=== PATIENT | female | born 1970 | race Caucasian/White ===

== ENCOUNTER → 2020-10-10 08:29 | Outpatient (CLI) | payer OTHER, SELFPAY ==
[2020-10-10 21:01] LABS: Cholesterol 209 mg/dL (140-199); HDL Cholesterol 60 mg/dL (40-60); LDL Cholesterol Calculated 124 mg/dL (<100); Triglycerides 126 mg/dL (35-150)
== END ==
PROVIDERS: PCP Physician Assistant; Visit Provider Physician Assistant
DX: E03.9 Hypothyroidism, unspecified (principal); Z13.220 Encounter for screening for lipoid disorders
CPT/HCPCS: 80061; 84443

== ENCOUNTER → 2021-06-19 08:24 | Outpatient (CLI) | payer OTHER, SELFPAY ==
[2021-06-19 20:08] LABS: Alanine Aminotransferase 16 IU/L (<35); Albumin 4.5 g/dL (3.5-5.0); Albumin Globulin Ratio 1.6 (1.0-2.8); Alkaline Phosphatase 92 U/L (38-126); Aspartate Aminotransferase 26 IU/L (14-36); BUN Creatinine Ratio 15.4 (6-22); Bilirubin Total 1.7 mg/dL (0.2-1.3); Blood Urea Nitrogen 12 mg/dL (7-17); Calcium 10.2 mg/dL (8.4-10.2); Carbon Dioxide 28 mmol/L (22-32); Chloride 104 mmol/L (98-107); Cholesterol 217 mg/dL (140-199); Estimated Glomerular Filt Rate > 60.0 mL/min (>60); Globulin 2.8 g/dL (1.7-4.1); Glucose 97 mg/dL (70-100); HDL Cholesterol 69 mg/dL (40-60); HEMOLYSIS 16 (0-50); LDL Cholesterol Calculated 128 mg/dL (<100); Potassium 4.5 mmol/L (3.4-5.1); Sodium 137 mmol/L (137-145); Total Protein 7.3 g/dL (6.3-8.2); Triglycerides 100 mg/dL (35-150)
[2021-06-19 20:23] LABS: Free T3, Triiodothyronine Free 3.47 pg/mL (2.77-5.27)
[2021-06-19 20:39] LABS: TSH w/ Reflex to FT4 0.52 uIU/mL (0.47-4.68)
== END ==
PROVIDERS: PCP Physician Assistant; Visit Provider Physician Assistant
DX: Z13.220 Encounter for screening for lipoid disorders (principal); E03.9 Hypothyroidism, unspecified
CPT/HCPCS: 80053; 80061; 84443; 84481

== ENCOUNTER → 2022-07-28 11:01 | Outpatient (CLI) | payer OTHER, SELFPAY ==
[2022-07-28 19:23] LABS: Hematocrit 40.9 % (36-46); Hemoglobin 13.9 g/dL (12.0-16.0); Mean Corpuscular HGB Conc 33.9 % (30-36); Mean Corpuscular Hemoglobin 31.9 PG (26-34); Mean Corpuscular Volume 94.1 fL (80-100); Platelet Count 212 X10^3/uL (150-400); Red Blood Cell Count 4.35 X10^6/uL (4.0-5.2); Red Cell Distribution Width 13.4 % (11.6-14.8); White Blood Cell Count 6.5 X10^3/uL (4.5-11.0)
[2022-07-28 19:31] LABS: Alanine Aminotransferase 21 IU/L (<35); Albumin 4.5 g/dL (3.5-5.0); Albumin Globulin Ratio 1.6 (1.0-2.8); Alkaline Phosphatase 98 U/L (38-126); Aspartate Aminotransferase 28 IU/L (14-36); BUN Creatinine Ratio 12.3 (6-22); Bilirubin Total 1.4 mg/dL (0.2-1.3); Blood Urea Nitrogen 10 mg/dL (7-17); Carbon Dioxide 30 mmol/L (22-32); Chloride 101 mmol/L (98-107); Cholesterol 190 mg/dL (140-199); Estimated Glomerular Filt Rate > 60 mL/min (>60); Globulin 2.9 g/dL (1.7-4.1); Glucose 97 mg/dL (70-100); HDL Cholesterol 55 mg/dL (40-60); HEMOLYSIS < 15 (0-50); LDL Cholesterol Calculated 104 mg/dL (<100); Potassium 4.2 mmol/L (3.4-5.1); Sodium 140 mmol/L (137-145); Total Protein 7.4 g/dL (6.3-8.2); Triglycerides 156 mg/dL (35-150)
[2022-07-28 19:45] LABS: Neutrophils Absolute Manual 4030 /uL (3000-5900); Platelet Estimate Adequate on smear; RBC Morphology Normal Morphology; Total Cells Counted 100
[2022-07-28 19:47] LABS: Free T3, Triiodothyronine Free 3.76 pg/mL (2.77-5.27)
[2022-07-28 20:01] LABS: TSH w/ Reflex to FT4 0.03 uIU/mL (0.47-4.68)
[2022-07-28 23:10] LABS: Free T4, Direct Thyroxine 1.69 ng/dL (0.78-2.19)
== END ==
PROVIDERS: PCP Physician Assistant; Visit Provider Physician Assistant
DX: E03.9 Hypothyroidism, unspecified (principal); E78.00 Pure hypercholesterolemia, unspecified; Z79.899 Other long term (current) drug therapy
CPT/HCPCS: 80053; 80061; 84439; 84443; 84481; 85025

== ENCOUNTER → 2022-08-20 12:17 | Outpatient (CLI) | payer OTHER, SELFPAY ==
[2022-08-20 19:41] LABS: Bilirubin Total 0.7 mg/dL (0.2-1.3); Lipase 114 U/L (23-300)
[2022-08-20 20:08] LABS: TSH w/ Reflex to FT4 0.21 uIU/mL (0.47-4.68)
[2022-08-20 21:22] LABS: Free T4, Direct Thyroxine 1.22 ng/dL (0.78-2.19)
== END ==
PROVIDERS: PCP Physician Assistant; Visit Provider Physician Assistant
DX: R17 Unspecified jaundice (principal); E03.9 Hypothyroidism, unspecified; E78.5 Hyperlipidemia, unspecified
CPT/HCPCS: 82247; 82248; 83690; 84439; 84443; 84481

== ENCOUNTER → 2023-05-07 13:30 | Outpatient (CLI) | payer OTHER, SELFPAY ==
[2023-05-07 20:34] LABS: TSH w/ Reflex to FT4 0.45 uIU/mL (0.47-4.68)
[2023-05-07 20:59] LABS: Free T4, Direct Thyroxine 1.48 ng/dL (0.78-2.19)
== END ==
PROVIDERS: PCP Physician Assistant; Visit Provider Physician Assistant
DX: E03.9 Hypothyroidism, unspecified (principal)
CPT/HCPCS: 84439; 84443

== ENCOUNTER → 2023-07-30 13:03 | Outpatient (CLI) | payer OTHER, SELFPAY ==
[2023-07-30 22:11] LABS: Thyroid Stimulating Hormone 1.18 uIU/mL (0.47-4.68)
== END ==
PROVIDERS: PCP Family Medicine; Visit Provider Family Medicine
DX: E03.9 Hypothyroidism, unspecified (principal)
CPT/HCPCS: 84443

== ENCOUNTER 2023-12-19 08:53 | Emergency (ER) | payer OTHER, SELFPAY ==
[2023-12-19] VITALS (8 sets, daily range): BP systolic 119–160; BP diastolic 70–87; PULSE 62–91; RESP 18; TEMP 37.1; O2SAT 94–99; BMI 38.6
--- NOTE | 2023-12-19 09:05 | ED.SKABFB ---
HPI - Skin/Abscess/Foreign Bdy General Chief complaint: Allergic Reaction Stated complaint: Allergic reaction Time Seen by Provider: 12/19/23 08:54 History of Present Illness HPI narrative: 53-year-old female presents for swelling, redness, itching of her face for the last 4 days. Last night patient began to have crusting and oozing from her cheeks. Took 2 Benadryl tablets at 4:00 a.m. prior to arrival. Patient states symptoms started shortly after starting topical ketoconazole and triamcinolone cream for a separate dermatological issue in her genital region. Patient has not used either these creams on her face. The itching and oozing is localized only to her face. Patient denies shortness of breath, nausea, vomiting, other complaints at this time. Related Data Previous Rx's Medication Instructions Recorded levothyroxine 125 mcg capsule 125 mcg PO DAILY #90 caps 05/28/23 estradiol 0.0375 mg/24 hr weekly 1 patch transdermal .TWICE WEEKLY 06/02/23 transdermal patch PATCH #8 ea progesterone micronized 100 mg 100 mg PO BEDTIME #90 caps 06/02/23 capsule levothyroxine 125 mcg tablet 125 mcg PO DAILY #90 tabs 11/30/23 cephalexin 250 mg capsule 250 mg PO QID #28 caps 12/19/23 mupirocin 2 % topical ointment 1 applic topical TID #22 grams 12/19/23 prednisone 20 mg tablet 20 mg PO BID #6 tabs 12/19/23 Allergies Allergy/AdvReac Type Severity Reaction Status Date / Time No Known Drug Allergies Allergy Verified 05/28/23 16:30 Patient History Medical History Low libido Menopausal symptoms Diverticulosis large intestine w/o perforation or abscess w/bleeding Social History Smoking Status: Never smoker Smoking Status: Never smoker Exam Initial Vital Signs Initial Vital Signs: Vital Signs Blood Pressure 160/87 H 12/19/23 08:57 Const: Awake, alert, no acute distress, nontoxic appearing HEENT: Atraumatic, moist mucous membranes, no tongue swelling Cardiac: regular rate, regular rhythm RESP: unlabored, clear bilaterally, no wheezing Skin: Erythema of cheeks extending just past jaw bilaterally, honey crusting over cheeks Neuro: AO x3, CN II-XII grossly intact, moves all extremities Course Orders Ordered: ED Orders 12/19/23 09:05 CBC Auto Diff [Complete Blood Count AUTO DIFF] Stat CMP [Comprehensive Metabolic Panel] Stat Discontinued Medications Diphenhydramine HCl (Diphenhydramine 50 Mg/Ml Vial) 50 mg IV NOW ONE Stop: 12/19/23 09:01 Last Admin: 12/19/23 09:13 Dose: 50 mg Documented By: RB Ketorolac Tromethamine (Ketorolac 30 Mg/Ml Vial) 15 mg IV NOW ONE Stop: 12/19/23 09:01 Last Admin: 12/19/23 09:13 Dose: 15 mg Documented By: RB Methylprednisolone (Methylprednisolone 125 Mg/2 Ml Vial) 125 mg IV NOW ONE Stop: 12/19/23 09:01 Last Admin: 12/19/23 09:13 Dose: 125 mg Documented By: RB Vital Signs Vital signs: Vital Signs - 8 hr 12/19/23 08:57 12/19/23 08:58 12/19/23 08:58 Temperature 98.7 F Pulse Rate 81 91 H Respiratory Rate 18 Blood Pressure 160/87 H 134/79 Pulse Oximetry 98 97 Oxygen Delivery Method Room Air 12/19/23 09:00 12/19/23 09:00 12/19/23 09:15 Temperature Pulse Rate 83 77 Respiratory Rate Blood Pressure 134/79 Pulse Oximetry 99 99 Oxygen Delivery Method 12/19/23 09:15 12/19/23 10:15 12/19/23 10:16 Temperature Pulse Rate 77 62 Respiratory Rate Blood Pressure 129/72 Pulse Oximetry 94 96 Oxygen Delivery Method 12/19/23 10:16 12/19/23 10:30 12/19/23 10:30 Temperature Pulse Rate 71 Respiratory Rate Blood Pressure 121/70 119/73 Pulse Oximetry 95 Oxygen Delivery Method 12/19/23 10:45 12/19/23 10:45 Temperature Pulse Rate 71 Respiratory Rate Blood Pressure 125/77 Pulse Oximetry 95 Oxygen Delivery Method MDM - Skin/Abscess/Foreign Bdy Lab Data 12/19/23 09:05 12/19/23 09:05 Labs: Lab Results 12/19/23 Range/Units 09:05 WBC 8.3 (4.5-11.0) X10^3/uL RBC 4.30 (4.0-5.2) X10^6/uL Hgb 14.1 (12.0-16.0) g/dL Hct 41.6 (36-46) % MCV 96.8 (80-100) fL MCH 32.8 (26-34) PG MCHC 33.9 (30-36) % RDW 13.5 (11.6-14.8) % Plt Count 214 (150-400) X10^3/uL Neut % (Auto) 62.9 (50-75) % Lymph % (Auto) 24.5 L (25-40) % [place] % (Auto) 6.7 (3-14) % Eos % (Auto) 5.3 H (2-4) % Baso % (Auto) 0.6 (0-2) % Neut # (Auto) 5200 (5629-0186) /uL Lymph # (Auto) 2000 (4226-7161) /uL [place] # (Auto) 600 (0-900) /uL Eos # (Auto) 400 (0-450) /uL Baso # (Auto) 100 (0-100) /uL Sodium 139 (137-145) mmol/L Potassium 4.4 (3.4-5.1) mmol/L Chloride 106 (98-107) mmol/L Carbon Dioxide 30 (22-32) mmol/L BUN 13 (7-17) mg/dL Creatinine 0.93 (0.52-1.04) mg/dL Estimated GFR > 60 (>60) mL/min BUN/Creatinine Ratio 14.0 (6-22) Glucose 118 H (70-100) mg/dL Calcium 9.6 (8.4-10.2) mg/dL Total Bilirubin 1.2 (0.2-1.3) mg/dL AST 24 (14-36) IU/L ALT 16 (<35) IU/L Alkaline Phosphatase 94 (38-126) U/L Total Protein 7.6 (6.3-8.2) g/dL Albumin 4.4 (3.5-5.0) g/dL Globulin 3.2 (1.7-4.1) g/dL Albumin/Globulin Ratio 1.4 (1.0-2.8) MDM Narrative Medical decision making narrative: Skin redness and swelling of both cheeks. There is what appears to be honey crusting of the cheeks as well. No other systemic rash or symptoms to suggest allergic reaction. This seems more likely to be a bacterial infection such as impetigo. No airway involvement or compromise. Laboratory work is unremarkable. Patient states that the stinging sensation in her face seems to have gone down somewhat. I still feel as though patient's symptoms are more likely to be skin/soft tissue related I will also plan on discharging with a short course of steroids if there is an allergic component involved. Patient counseled to finish all medications as prescribed and to follow up with her intelligence engineer. Skin care and handwashing guidelines instructed at bedside Discharge Plan Departure Patient Disposition: Home Clinical Impression: Impetigo Instructions: DI for Impetigo Activity Restrictions/Additional Instructions: The rash and swelling on your face is suspicious for impetigo. To be on the safe side I will also treat this as a possible allergic reaction with steroids. Apply the antibiotic ointment to your face 3 times daily for the next 5-7 days. Finish all antibiotics as prescribed even if you are feeling improved. Follow up with your intelligence engineer. Any time you touch her face make sure to wash her hands thoroughly with soap and water Prescriptions: New mupirocin 2 % ointment 1 applic topical TID Qty: 22 0RF cephalexin 250 mg capsule 250 mg PO QID Qty: 28 0RF prednisone 20 mg tablet 20 mg PO BID Qty: 6 0RF No Action estradiol 0.0375 mg/24 hr patch weekly 1 patch transdermal .TWICE WEEKLY PATCH Qty: 8 12RF Rx Instructions: PLACE 1 PATCH ON THE SKIN 2 TIMES A WEEK. progesterone micronized 100 mg capsule 100 mg PO BEDTIME Qty: 90 3RF levothyroxine 125 mcg tablet 125 mcg PO DAILY Qty: 90 2RF levothyroxine 125 mcg capsule 125 mcg PO DAILY Qty: 90 1RF Referrals: Kamala Abebe MD [Primary Care Provider] - Stand Alone Forms: Patient Portal/API
[2023-12-19] MEDS: diphenhydrAMINE 50 MG/ML VIAL IV (09:13)
[2023-12-19] MEDS: KETOROLAC 30 MG/ML VIAL 15 MG IV (09:13)
[2023-12-19] MEDS: methylPREDNISolone 125 MG/2 ML VIAL IV (09:13)
[2023-12-19 10:04] LABS: Add Manual Diff / Slide Review NO; Basophils Absolute Auto 100 /uL (0-100); Basophils Percent Auto 0.6 % (0-2); Eosinophils Absolute Auto 400 /uL (0-450); Eosinophils Percent Auto 5.3 % (2-4); Hematocrit 41.6 % (36-46); Hemoglobin 14.1 g/dL (12.0-16.0); Lymphocytes Absolute Auto 2000 /uL (1100-4500); Lymphocytes Percent Auto 24.5 % (25-40); Mean Corpuscular HGB Conc 33.9 % (30-36); Mean Corpuscular Hemoglobin 32.8 PG (26-34); Mean Corpuscular Volume 96.8 fL (80-100); Monocytes Absolute Auto 600 /uL (0-900); Monocytes Percent Auto 6.7 % (3-14); Neutrophils Absolute Auto 5200 /uL (1500-7000); Neutrophils Percent Auto 62.9 % (50-75); Platelet Count 214 X10^3/uL (150-400); Red Cell Distribution Width 13.5 % (11.6-14.8); White Blood Cell Count 8.3 X10^3/uL (4.5-11.0)
[2023-12-19 10:13] LABS: Alanine Aminotransferase 16 IU/L (<35); Albumin 4.4 g/dL (3.5-5.0); Albumin Globulin Ratio 1.4 (1.0-2.8); Alkaline Phosphatase 94 U/L (38-126); Aspartate Aminotransferase 24 IU/L (14-36); Bilirubin Total 1.2 mg/dL (0.2-1.3); Blood Urea Nitrogen 13 mg/dL (7-17); Calcium 9.6 mg/dL (8.4-10.2); Carbon Dioxide 30 mmol/L (22-32); Chloride 106 mmol/L (98-107); Estimated Glomerular Filt Rate > 60 mL/min (>60); Globulin 3.2 g/dL (1.7-4.1); Glucose 118 mg/dL (70-100); HEMOLYSIS < 15 (0-50); Potassium 4.4 mmol/L (3.4-5.1); Sodium 139 mmol/L (137-145); Total Protein 7.6 g/dL (6.3-8.2)
== END 2023-12-19 11:01 | disposition home or self-care (01) ==
PROVIDERS: Emergency Provider Emergency Medicine; PCP Family Medicine
DX: L01.00 Impetigo, unspecified (principal)
CPT/HCPCS: 36415; 80053; 85025; 96374; 96375; 99283; 99284; J1200; J1885; J2919